=== PATIENT | female | born 1970 | race Caucasian/White ===

== ENCOUNTER 2020-09-06 10:16 | Outpatient (REF) | payer OTHER, SELFPAY | END 2020-09-06 10:17 | disposition home or self-care (01) | LOC: HO.LAB 10:16 | PROVIDERS: Visit Provider Internal Medicine | DX: Z20.822 Contact with and (suspected) exposure to COVID-19 (principal) | CPT/HCPCS: 36415; C9803; U0003; U0005 ==

== ENCOUNTER 2023-07-19 11:02 | Outpatient (REF) | payer MEDICAID, SELFPAY ==
[2023-07-19 14:09] LABS: Erythrocyte Sedimentation Rate 13 MM/HR (0-20)
[2023-07-21 04:58] LABS: Lyme Abs Screen <0.90 index
== END 2023-07-19 11:03 | disposition home or self-care (01) ==
LOC: HO.HHCL 11:02
PROVIDERS: Visit Provider Psychiatry & Neurology Neurology
DX: G51.0 Bell's palsy (principal)
CPT/HCPCS: 36415; 85652; 86617; 86618

== ENCOUNTER 2023-08-09 14:00 | Outpatient (RCR) | payer MEDICAID, SELFPAY ==
--- NOTE | 2023-09-13 10:44 | MHC.PT.DC ---
[facility] [place] [facility] [place] [facility] [place] [facility] [address] Petra Crawford [address] [phone] F: [phone] F: [phone] F: [phone] F: [phone] Physical Therapy Discharge Report Diagnosis: Equality palsy ( Dx) Date of Surgery: Date of Evaluation: 07/26/23 Date of Discharge: 09/13/23 Treatments to Date: 2 Cancellations to Date: 2 No Shows to Date: 1 Discharge Status: Patient Elected to Stop Visit Non-compliance Discharge Summary: Linda was given information on and educated about Equality Palsy and given exercises to practice daily for [facility]. She ceased attending PT on her own accord and is discharged from PT at this time. Electronically signed by: Pete Castro, PT, DPT Please sign and return to therapist. Thank you for your referral.
== END 2023-09-13 10:45 | disposition home or self-care (01) ==
LOC: HO.PT 14:00
PROVIDERS: PCP Student in an Organized Health Care Education/Training Program; Visit Provider Psychiatry & Neurology Neurology
DX: G51.0 Bell's palsy (principal)
CPT/HCPCS: 97110; 97140; 97163

== ENCOUNTER 2024-12-28 10:39 | Outpatient (REF) | payer MEDICAID, SELFPAY ==
--- NOTE | ~2024-12-28 | XR_ITS ---
EXAMINATION: XR FOOT 3 OR MORE VIEWS RIGHT HISTORY: distal plantar R foot pain for mos COMPARISON: There are no prior studies available for comparison. FINDINGS: Four views of the right foot are submitted. Osseous mineralization is normal. There is no fracture or dislocation. There is moderate osteoarthritis of the 1st MTP joint, with joint space narrowing and osteophyte formation. The soft tissues are unremarkable. No radiopaque foreign body is identified. XR/XR foot RT min 3V IMPRESSION: 1. 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 2. No radiopaque foreign body is identified. Electronically signed by: Adonis Banks MD 12/28/2024 11:13 AM EDT
== END 2024-12-28 10:40 | disposition home or self-care (01) ==
LOC: HO.HHCX 10:39
PROVIDERS: Visit Provider Family Medicine
DX: M79.671 Pain in right foot (principal)
CPT/HCPCS: 73630

== ENCOUNTER 2025-05-01 14:33 | Outpatient (REF) | payer MEDICAID, SELFPAY ==
--- NOTE | ~2025-05-01 | XR_ITS ---
EXAMINATION: XR LUMBOSACRAL SPINE CLINICAL INFORMATION: pain COMPARISON: None available. TECHNIQUE: Three views of the lumbosacral spine. FINDINGS: No evidence of acute fracture or spondylolisthesis. Vertebral body heights are maintained. Multilevel mild disc degeneration. Mild facet degeneration in the lower lumbar spine. No suspicious bony lesion. SI joints are symmetric. No abnormal soft tissue calcification. XR/XR lumbar spine 2-3V IMPRESSION: Mild lumbar spondylosis. Electronically signed by: Guille Srivastava MD 05/02/2025 03:19 PM VINEET BOWLES
--- OUTSIDE RECORDS SUMMARY | 2025-05-01 13:15 | XMS_ITS | Encounter Summary ---
Author Organization [employer] Address [address] [place] [address] 7 [place] [address] Care Team Providers Care Department Editor Name Role Phone Ariadna Jewell MD Primary Care Provide r Reason for Referral * Consultation (Routine) - Closed Specialty Diagnoses / Procedures Referred By Contac t Referred To Contact Physical Therapy Diagnoses Chronic midline low back pain without sciatica Ariadna Jewell MD [address] [place] [id number] Phone: tel: fax: [facility] Physical Therapy [address] [place] [address] Phone: tel: fax: Referral ID Status Reason Start Date Expiration Date V isits Requested Visits Authorized [id number] Closed Specialty Services Required 05/01/2025 05/01/2026 20 20 Encounter Details Date Type Department Care Team (Latest Contact Info) Description 05/01/2025 1:15 PM EST Office Visit [facility] MEDICINE [address] [place] [address] [phone] Ariadna Jewell MD [address] [place] [address] [phone] Subclinical hypothyroidism (Primary Dx); Uncomplicated opioid dependence (CMS/HCC) (HCC); Chronic midline low back pain without sciatica; Severe episode of recurrent major depressive disorder, without psychotic features (CMS/HCC) (HCC); Dietary counseling; Exercise counseling; Class 1 obesity due to excess calories with serious comorbidity and body mass index (BMI) of 32.0 to 32.9 in adult; Insomnia due to other mental disorder Social History Tobacco Use Types Packs/Day Years Used Date Smoking Tobacco: Every Day Cigarettes Passive Smoke Exposure: Never Smokeless Tobacco: Never Tobacco Cessation:Ready to Q uit: Not Asked; Counseling Given: Not Answered Alcohol Answer Date Recorded How often do you have a drink containing alcohol ? 0 05/01/2025 Average Number of Drinks Not on file 025 How often do you have six or more drinks on one occasion? 0 05/01/2025 Depression Answer Date Recorded Patient Health Questionnaire-9 Score 5 11/26/2022 Housing Stability Answer Date Recorded What is your housing situation today? I do not have housing (Staying with others, in a hotel, in a usp, living outside on the street, on a beach, in a car, or in a park 02/06/[address] you li ve. Do you have problems with any of the following? None of the above 02/06/2025 Food Insecurity Answer Date Recorded Within the past 12 months, y ou worried that your food would run out before you got money to buy more: Never True 02/06/2025 Within the past 12 months,th e food you bought just didn't last and you didn't have enough money to get more: Never True Transportation Answer Date Recorded In the past 12 months, has l ack of transportation kept you from medical appts, meetings, work or from getting things needed for daily living? Yes, it has kept me from non-medical meetings, work, or getting things that I need 02/06/2025 Utilities Answer Date Recorded In the past 12 months, has t he electric, gas, oil or water company threatened to shut off services in your home? No 02/06/2025 Depression Answer Date Recorded Patient Health Questionnaire-2 Score 0 11/26/2022 Internet Access Answer Date Recorded Internet Access Q1 Yes 02/06/2025 Internet Access Q2 Not on file 02/06/2025 Comments Unknown Sex and Gender Information Value Date Recorded Sex Assigned at Female 04/13/2022 10:31 AM EDT Legal Sex Female 10:31 AM EDT Gender Identity Female 04/13/2022 10:31 AM EDT Sexual Orientation Straight 04/13/2022 10 :31 AM EDT documented as of this encounter Last Filed Vital Signs Vital Sign Reading Time Taken Comments Blood Pressure 140/70 05/01/2025 1:30 PM EST Pulse 87 05/01/2025 1:30 PM EST Temperature 36.2 C (97.1 F) 05/01/2025 1:30 PM EST Respiratory Rate 14 05/01/2025 1:30 PM EST Oxygen Saturation 96% 05/01/2025 1:30 PM EST Inhaled Oxygen Concentration - - Weight 75.7 kg (166 lb 12.8 oz) 05/01/2025 1:30 PM EST Height 152.4 cm (5') 05/01/2025 1:30 PM EST Body Mass Index 32.58 05/01/2025 1:30 PM EST documented in this encounter Functional Status * Little interest or pleasure in doing things Answer Date of Assessment Author Nearly every day 05/01/2025 2:16 PM EST Roxanne Caldera MA * Trouble falling or staying asleep, or sleeping too much Answer Date of Assessment Author Nearly every day 05/01/2025 2:16 PM EST Roxanne Caldera MA * Feeling tired or having little energy Answer Date of Assessment Author Nearly every day 05/01/2025 2:16 PM Roxanne Villegas MA * Poor appetite or overeating Answer Date of Assessment Author Nearly every day 05/01/2025 2:16 PM EST Roxanne Caldera MA * Feeling bad about yourself - or that you are a failure or have let yourself or your family down Answer Date of Assessment Author Nearly every day 05/01/2025 2:16 PM EST Roxanne Caldera MA * Trouble concentrating on things, such as reading the newspaper or watching television Answer Date of Assessment Author More than half the days 05/01/2025 2:16 PM EST Kandi Macdonald MA * Moving or speaking so slowly that other people could have noticed? Or the opposite - being so fidgety or restless that you have been moving around a lot more than usual. Answer Date of Assessment Author Several days 05/01/2025 2:16 PM Smith Villegas ra, [place] * Thoughts that you would be better off or hurting yourself in some way Answer Date of Assessment Author Several days 05/01/2025 2:16 PM Smith Villegas ra, [place] * Over the last 2 weeks, how often have you been bothered by any of the following problems? Question Answer Date of Assessment Author Feeling nervous, anxious, or on edge 3 04/14 2:17 PM Kandi Villegas MA Not being able to stop or co ntrol worrying 1 05/01/2025 2:17 PM Kandi Villegas MA Worrying too much about diff erent things 1 05/01/2025 2:17 PM Kandi Villegas MA Trouble relaxing 3 05/01/2025 2:17 PM Kandi Pinto MA Being so restless that it is hard to sit still 1 05/01/2025 2:17 PM Kandi Villegas MA Becoming easily annoyed or irritable 3 04/14 2:17 PM Kandi Villegas MA Feeling afraid as if somethi ng awful might happen 3 05/01/2025 2:17 PM Kandi Villegas MA BRAD-7 Total Score 15 05/01/2025 2:17 PM Kandi Villegas MA documented as of this encounter Progress Notes * Ariadna Foley MD - 05/01/2025 1:15 PM EST SUBJECTIVE: Jorge Garza is a 54 y.o. year old female who presents for transfer appointment . 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 - EtOH denies (quit in the summer) - smoking cigarettes 4 daily - recreational drug use recently relapse on fentanyl patient has accessibility to narcan Diet:regular Exercise:walks 3 times a week 30min daily Surgeries/Hospitalizations:none Declines colon cancer screening PMHx:on chart FMHx:on chart Immunizations: Reviewed Jorge Garza, 54 years Chronic Low Back Pain - Intermittent lower back pain since 2009 - Pain located across lower back above buttocks, sometimes radiates to hip - Aggravated by walking and standing for prolonged periods; relieved by sitting - Described as agonizing at times, interferes with ability to work - No prior formal evaluation for back pain - No prior treatments reported - Recent increase in impact on daily functioning Sleep Disturbance - Ongoing difficulty sleeping, wakes up every hour - Reports being very tired - Tried Tylenol PM, hydroxyzine, and clonidine for sleep with minimal benefit - Recent reduction in doxepin dose from 90 mg to 10 mg - 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 program 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 Substance Use and Mental Health - History of depression, currently on duloxetine (recently reduced from 90 mg to 30 mg) - Reports relapse with fentanyl use on day of visit; history of heroin (snorted), marijuana, and crack cocaine use - On 135 mg methadone maintenance - No history of overdose on heroin - Reports significant psychosocial stressors: recent homelessness, a few years ago, loss of pet to cancer - Denies current suicidal ideation or plan Weight Gain - Reports weight gain from 113 lbs in spring to 166 lbs at time of visit - History of possible thyroid evaluation in past due to weight gain Lower Extremity Symptoms - Reports visible veins and swelling around ankle, with a circular emy - No prior evaluation or treatment for these symptoms Dyspareunia - Last intercourse in late winter or early spring was painful and uncomfortable - No further intercourse since that episode - Last Pap smear in 2020 with negative HPV co-testing Misc - Reports dry mouth - Reports generalized pain including ankle Social History Social History Narrative Not on file Problem List[1] Moderate depressive disorder Opioid dependence (HCC) Subclinical hypothyroidism Health care maintenance Elevated liver enzymes Hyperlipidemia Bella's palsy Chronic midline low back pain without sciatica Severe episode of recurrent major depressive disorder, without psychotic features (CMS/HCC) (HCC) Family History[2] Review of Systems Constitutional: Negative. HENT: Negative. Respiratory: Negative. Cardiovascular: Negative. Musculoskeletal: Positive for arthralgias, back pain and myalgias. Psychiatric/Behavioral: Positive for sleep disturbance. The patient is nervous/anxious. OBJECTIVE: Vitals: 05/01/25 1330 BP: (!) 140/70 BP Location: Left arm Patient Position: Sitting BP Cuff Size: Adult Pulse: 87 Resp: 14 Temp: 97.1 ??F (36.2 ??C) TempSrc: Oral SpO2: 96% Weight: 166 lb 12.8 oz (75.7 kg) Height: 5' (1.524 m) Physical Exam Constitutional: Appearance: Normal appearance. Cardiovascular: Rate and Rhythm: Normal rate and regular rhythm. Pulmonary: Effort: Pulmonary effort is normal. Breath sounds: Normal breath sounds. Abdominal: General: Abdomen is flat. Palpations: Abdomen is soft. Musculoskeletal: Lumbar back: Tenderness present. Right lower leg: No edema. Left lower leg: No edema. Neurological: Mental Status: She is alert. Follow Up: No follow-ups on file. Medications Ordered Prior to Encounter[3] Problem List Items Addressed This Visit Opioid dependence (HCC) Relevant Orders HIV-1/2 Antigen and Antibodies, Fourth Generation, with Reflexes Hepatitis C Antibody with Reflex to HCV, RNA, Quantitative, Real-Time PCR Chronic midline low back pain without sciatica Relevant Orders XR Lumbar Spine 2-3 Views Referral to Physical Therapy Subclinical hypothyroidism - Primary Relevant Orders CBC auto differential Comprehensive Metabolic Panel Hemoglobin A1c Lipid Panel, Standard Vitamin D, 25-Hydroxy, Total, Immunoassay TSH with Reflex to Free T4 Severe episode of recurrent major depressive disorder, without psychotic features (CMS/HCC) ([facility]) Relevant Orders CBC auto differential Comprehensive Metabolic Panel Hemoglobin A1c Lipid Panel, Standard Vitamin D, 25-Hydroxy, Total, Immunoassay TSH with Reflex to Free T4 Insomnia due to other mental disorder Other Visit Diagnoses Dietary counseling Exercise counseling Class 1 obesity due to excess calories with serious comorbidity and body mass index (BMI) of 32.0 to 32.9 in adult Uncomplicated opioid dependence (CMS/HCC) ([facility]): - Opioid dependence with recent relapse reported. Currently on methadone maintenance therapy. - Continue methadone maintenance. Discussed presence of Narcan in residence. No changes to current medication regimen. Follow-up with entertainment reporter and psychiatrist as scheduled. Chronic midline low back pain without sciatica: - Chronic low back pain, possibly related to osteoarthritis. No prior formal evaluation. - Ordered lumbar spine X-ray. Referred to physical therapy. Follow-up appointment scheduled in one month to review imaging and progress. Subclinical hypothyroidism: - Subclinical hypothyroidism considered due to weight gain and prior thyroid concerns. - Ordered thyroid function tests as part of blood work. Will review results at follow-up. Severe episode of recurrent major depressive disorder, without psychotic features (CMS/HCC) ([facility]): - Severe recurrent major depressive disorder without psychotic features. Currently managed by psychiatrist with duloxetine and other medications. Ongoing psychosocial stressors. - Continue current psychiatric management. Recommended follow-up with psychiatrist on May. Encouraged communication with counselor and entertainment reporter. Edema and venous changes in lower extremities: - Edema and visible venous changes noted in ankles. No acute intervention indicated. - Will monitor. No specific intervention ordered at this time. Insomnia: - Persistent insomnia despite current medications. Difficulty sleeping reported. - Recommended discussion of sleep issues with psychiatrist at upcoming appointment. No new sleep medication prescribed. Weight gain: - Significant weight gain noted. Possible multifactorial etiology including thyroid dysfunction anddietary habits. - Ordered blood work including thyroid panel, kidney, liver, cholesterol, HIV, and hepatitis. Discussed dietary modifications. No gripper installer referral at this time per patient preference. Will review lab results at follow-up. [1] Patient Active Problem List Diagnosis Moderate depressive disorder Opioid dependence (HCC) Subclinical hypothyroidism Health care maintenance Elevated liver enzymes Hyperlipidemia Bella's palsy Chronic midline low back pain without sciatica Severe episode of recurrent major depressive disorder, without psychotic features (CMS/HCC) (HCC) Insomnia due to other mental disorder [2] No family history on file. [3] Current Outpatient Medications on File Prior to Visit Medication Sig Dispense Refill cloNIDine (Catapres) 0.1 MG tablet Take 1 tablet by mouth every 6 (six) hours during the day. cyclobenzaprine (Flexeril) 5 MG tablet Take 1 tablet by mouth if needed in the morning, at noon, and at bedtime for muscle spasms. doxepin (SINEquan) 75 MG capsule Take 1 capsule by mouth at bedtime. DULoxetine (Cymbalta) [address] capsule take 1 capsule by mouth every day in the evening DULoxetine (Cymbalta) [address] capsule Take 60 mg by mouth in the morning. fenofibrate (Triglide) 160 MG tablet TAKE 1 TABLET BY MOUTH EVERY DAY 90 tablet 0 gabapentin (Neurontin) 600 MG tablet Take 1 tablet by mouth every 6 (six) hours during the day. hydrOXYzine pamoate (Vistaril) 25 MG capsule Take 1 capsule by mouth every 6 (six) hours during theday. ibuprofen 600 MG tablet Take 1 tablet (600 mg) by mouth every 6 (six) hours if needed for mild pain. 30 tablet 1 methadone (Dolophine) 10 MG/ML solution 95 mg PO in [facility] methadone [facility] naloxone (Narcan) 4 mg/0.1 mL nasal spray nicotine (Nicoderm CQ) 21 MG/24HR patch Place 1 patch on the skin 1 (one) time each day at the sametime. 42 patch 1 rosuvastatin (Crestor) 20 MG tablet Take 1 tablet (20 mg) by mouth in the morning. 30 tablet 11 Salicylic Acid (Wart Remover Medicated) 40 % pads Apply 1 each topically every other day. 12 each 1 valACYclovir (Valtrex) 1 g tablet Take 1 tab three times daily x 1 week 21 tablet 0 No current facility-administered medications on file prior to visit. documented in this encounter Plan of Treatment Upcoming Encounters Date Type Department Care Team (Late st Contact Info) Description 06/13/2025 2:00 PM EST Telemedicine [facility] MEDICINE [address], [place] [phone] Ariadna Jewell MD [address] [place], [place] [phone] Scheduled Orders Name Type Priority Associated Diagnoses Orde r Schedule XR Lumbar Spine 2-3 Views Imaging Routine Chronic midline low back pain without sciatica Expected: 05/01/2025, Expires: 05/01/2026 CBC auto differential Lab Routine Subclinical hypothyroidism Severe episode of recurrent major depressive disorder, without psychotic features (CMS/HCC) (HCC) Expected: 05/01/2025 (Approximate), Expires: 05/01/2026 Comprehensive Metabolic Panel Lab Routine Subclinical hypothyroidism Severe episode of recurrent major depressive disorder, without psychotic features (CMS/HCC) (HCC) Expected: 05/01/2025 (Approximate), Expires: 05/01/2026 Hemoglobin A1c Lab Routine Subclinical hypothyroidism Severe episode of recurrent major depressive disorder, without psychotic features (CMS/HCC) (HCC) Expected: 05/01/2025 (Approximate), Expires: 05/01/2026 HIV-1/2 Antigen and Antibodies, Fourth Generation, with Reflexes Lab Routine Uncomplicated opioid dependence (CMS/HCC) (HCC) Expected: 05/01/2025 (Approximate), Expires: 05/01/2026 Hepatitis C Antibody with Reflex to HCV, RNA, Quantitative, Real-Time PCR Lab Routine Uncomplicated opioid dependence (CMS/HCC) (HCC) Expected: 05/01/2025, Expires: 05/01/2026 Lipid Panel, Standard Lab Routine Subclinical hypothyroidism Severe episode of recurrent major depressive disorder, without psychotic features (CMS/HCC) (HCC) Expected: 05/01/2025 (Approximate), Expires: 05/01/2026 Vitamin D, 25-Hydroxy, Total, Immunoassay Lab Routine Subclinical hypothyroidism Severe episode of recurrent major depressive disorder, without psychotic features (CMS/HCC) (HCC) Expected: 05/01/2025 (Approximate), Expires: 05/01/2026 TSH with Reflex to Free T4 Lab Routine Subclinical hypothyroidism Severe episode of recurrent major depressive disorder, without psychotic features (CMS/HCC) (HCC) Expected: 05/01/2025 (Approximate), Expires: 05/01/2026 Scheduled Referrals Name Type Priority Associated Diagnoses Orde r Schedule Referral to Physical Therapy Outpatient Referral Routine Chronic midline low back pain without sciatica Expected: 05/01/2025 (Approximate), Expires: 05/01/2026 documented as of this encounter Visit Diagnoses Diagnosis Subclinical hypothyroidism- Primary Other specified acquired hypothyroidism Uncomplicated opioid dependence (CMS/HCC) (HCC) Chronic midline low back pain without sciatica Severe episode of recurrent major depressive disorder, without psychotic features (CMS/HCC) (HCC) Dietary counseling Dietary surveillance and counseling Exercise counseling Class 1 obesity due to excess calories with serious comorbidity and body mass index (BMI) of 32.0 to 32.9 in adult Insomnia due to other mental disorder documented in this encounter Additional Health Concerns Assessment Noted Time PHQ-9 Depression Total Score: 5 11/27/19 23 11:49 AM EDT documented as of this encounter Care Teams Department Editor Relationship Specialty Start Date End Date Ariadna Jewell MD [address] [place] [phone] PCP - General Internal Medicine 12/11/24 Jailene Busby Dress MarkerNetwork Operations Technician 11/15/24 documented as of this encounter
--- OUTSIDE RECORDS SUMMARY | 2025-05-02 12:21 | XMS_ITS | Clinical Summary ---
Author Organization [employer] Address [address] [facility] 7t [place] [address] Care Team Providers Care House Carpenter Name Role Phone Ariadna Jewell MD Primary Care Provide r Allergies No known active allergies Medications methadone (Dolophine) 10 MG/ML solution 95 mg PO in [facility] methadone clinic 1 Active nicotine (Nicoderm CQ) 21 MG/24HR patchIndications:E ncounter for smoking cessation counseling Place 1 patch on the skin 1 (one) time each day at the same time. 42 patch 1 3 Active rosuvastatin (Crestor) 20 MG tabletIndications: Hyperlipidemia, unspecified hyperlipidemia type Take 1 tablet (20 mg) by mouth in the morning. 30 tablet 11 3 Active valACYclovir (Valtrex) 1 g tabletIndications: Bella's palsy Take 1 tab three times daily x 1 week 21 tablet 3 Active DULoxetine (Cymbalta) [address] capsule Take 60 mg by mouth in the morning. 3 Active fenofibrate (Triglide) 160 MG tabletIndications: Hyperlipidemia, unspecified hyperlipidemia type,Alcohol use TAKE 1 TABLET BY MOUTH EVERY DAY 90 tablet 4 Active Salicylic Acid (Wart Remover Medicated) 40 % pads Apply 1 each topically every other day. 12 each 1 5 Active ibuprofen 600 MG tablet Take 1 tablet (600 mg) by mouth every 6 (six) hours if needed for mild pain. 30 tablet 1 5 12/29/19 26 Active gabapentin (Neurontin) 600 MG tablet Take 1 tablet by mouth every 6 (six) hours during the day. 5 Active hydrOXYzine pamoate (Vistaril) 25 MG capsule Take 1 capsule by mouth every 6 (six) hours during the day. 5 Active DULoxetine (Cymbalta) [address] capsule take 1 capsule by mouth every day in the evening Active doxepin (SINEquan) 75 MG capsule Take 1 capsule by mouth at bedtime. 5 Active naloxone (Narcan) 4 mg/0.1 mL nasal spray Active cyclobenzaprine (Flexeril) 5 MG tablet Take 1 tablet by mouth if needed in the morning, at noon, and at bedtime for muscle spasms. Active cloNIDine (Catapres) 0.1 MG tablet Take 1 tablet by mouth every 6 (six) hours during the day. 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 Needs Hep B booster series, not immune in 2020, never revaccinated. Received dose #1 today 11/26/22 HIV: Nonreactive 11/08/20 Hep C: Nonreactive 11/08/20 Hepatitis B: NOT immune 11/08/20 Pap Smear: 10/11/20 NILM HPV neg. Repeat 5 years, 09/2025 Mammogram: Never done. Ordered 03/27/22. No record of being performed Colonoscopy: Never done. Discussed colon cancer screening options. Pt wishes to discuss further at next visit. Lung cancer: Encouraged smoking cessation. Per USPSTF annual low-dose lung CT scan age 50-80 who meet criteria: current smoker or quit in last 15 years; at least 20 pack history. Pt meets criteria. Needs screening. Will discuss at next visit. Elevated liver enzymes 12/04/2022 Overview (12/04/2022): ALT/AST elevated in the past Daily ETOH consumption Assessment & Plan (12/04/2022 12:24 PM EDT): Will check CMP liver enzymes again today Notify results F/u 3 months with new PCP Hyperlipidemia 12/04/2022 Overview (12/04/2022): Treating with Fenofibrate 160mg daily Rosuvastatin 10 mg since Jul 2022 Following low fat diet Assessment & Plan (12/04/2022 12:26 PM EDT): Will check lipid panel again today Improved from Jun 2022 but still elevated Will increase Rosuvastatin to 20 mg daily at bedtime Notify clinic of leg pains Avoid grapefruit juice F/u 3 months with new PCP Moderate depressive disorder 03/27/2022 Overview (12/04/2022): 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, 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 Grief r/t passing December 2021 Treating with Wellbutrin 300 mg Daily Assessment & Plan (12/04/2022 12:35 PM EDT): Continue wellbutrin Sx affecting daily living and function SSI pending Followup PRN Subclinical hypothyroidism 05/05/2021 Overview (07/03/2022): Thyroid panel WNL 03/27/22 Opioid dependence 02/10/2021 Resolved Problems Problem Noted Date Diagnosed Date Resolved Date Hypertriglyceridemia 05/05/2021 023 Encounters Date Type Department Care Team Description 05/01/2025 1:15 PM EST Office Visit [facility] [address] [place] [address] [phone] Ariadna Jewell MD Subclinical hypothyroidism (Primary Dx); Uncomplicated opioid dependence (CMS/HCC) (HCC); Chronic midline low back pain without sciatica; Severe episode of recurrent major depressive disorder, without psychotic features (CMS/HCC) (HCC); Dietary counseling; Exercise counseling; Class 1 obesity due to excess calories with serious comorbidity and body mass index (BMI) of 32.0 to 32.9 in adult; Insomnia due to other mental disorder 05/01/2025 Travel 04/30/[address] [phone] Ariadna Jewell MD Chart Prep 04/24/2025 Patient Outreach [address] [phone] Ariadna Jewell MD Pre-visit Planning (SDOH screening completed on 02/06/2025) 02/14/[address] [address] Ariadna Jewell MD chart prep 02/06/2025 Patient Outreach [address] [phone] Ariadna Jewell MD Care Coordination (CHW outreach for SDOH housing search-referral completed ) 02/06/2025 Patient Outreach [address] [address] Ariadna Jewell MD Pre-visit Planning (SDOH screening negative and tobacco screening negative) from Last 3 Months Immunizations Immunization Administration Dates Next Due Hep B, adult 11/26/2022 Tdap 10/21/2017 Social History Tobacco Use Types Packs/Day Years [...] with others, in a hotel, in a half-way, living outside on the street, on a [...] Orientation Straight 04/13/2022 10 :31 AM EDT Last Filed Vital Signs Vital Sign Reading [...] Mass Index 32.58 05/01/2025 1:30 PM EST Plan of Treatment Upcoming Encounters Date Type Department Care Team (Late st Contact Info) Description 06/13/2025 2:00 PM EST Telemedicine [facility] [address] [place] [phone] Ariadna Jewell MD [address] [place] [address] Health Maintenance Due Date Last Done Comments CT Colonography 1969 Colonoscopy 1969 Colorectal Cancer Screening 1969 FIT DNA/Cologuard 1969 FIT 1969 FOBT 1969 Sigmoidoscopy 1969 Disability Screening 1969 Pneumococcal Vaccine: 50+ Years (1 of 2 - PCV) 1988 Mammogram 2009 Zoster Vaccines (1 of 2) 2019 Hepatitis B Vaccines (2 of 3 - 19+ 3-dose series) 12/24/2022 11/26/2022 Depression Screening 11/27/2023 11/26/2022, 11/27/19 23 COVID-19 Vaccine ( - season) 2025 07/16/2021, 11/18/2020, 10/21/2020 Influenza Vaccine (#1) 2025 Cervical Cancer Screening 10/11/2025 HPV/Cotest 10/11/2025 10/11/2020 Pap Smear 10/11/2025 10/11/2020 SDOH Screening 02/06/2026 02/06/2025 Alcohol/Substance Use Screening 05/01/2026 05/01/2025 Tobacco Screening 05/01/2026 05/01/2025 DTaP/Tdap/Td Vaccines (2 - Td or Tdap) 10/22/2027 10/21/2017 Lipid Panel 11/27/2027 11/26/2022, 06/15, 03/27/2022, Additional history exists RSV Patients and Patients Aged 60 years or older (1 - 1-dose 75+ series) 2044 HIV Screening Completed 11/08/2020 Hepatitis C Screening Completed 11/08/2020 HIB Vaccines Aged Out No longer eligi ble based on patient's age to complete this topic HPV Vaccines Aged Out No longer eligi ble based on patient's age to complete this topic Hepatitis A Vaccines Aged Out No long er eligible based on patient's age to complete this topic IPV Vaccines Aged Out No longer eligi ble based on patient's age to complete this topic Meningococcal B Vaccine Aged Out No l onger eligible based on patient's age to complete this topic Meningococcal Vaccine Aged Out No agusto laura eligible based on patient's age to complete this topic RSV under 20 months Aged Out No longe r eligible based on patient's age to complete this topic Rotavirus Vaccines Aged Out No longer eligible based on patient's age to complete this topic Procedures Procedure Name Priority Date/Time Associated Diagnosis Comments LIPID PANEL, STANDARD Routine 11/26/2022 12:47 PM EDT Hyperlipidemia, unspecified hyperlipidemia type ZZZ HISTORICAL HEPATITIS C AB W/REFL TO HCV RNA, QN, PCR Routine 11/08/2020 10:22 AM EDT HIV 1/2 ANTIGEN/ANTIBODY, FOURTH GENERATION W/RFL Routine 11/08/2020 10:22 AM EDT HPV MRNA E6/E7 Routine 10/11/2020 4:36 PM EDT THINPREP IMAGING SYSTEM PAP Routine 10/11/2020 4:36 PM EDT from Last 3 Months or Most Recently Relevant to Health Maintenance Results * (ABNORMAL) Lipid Panel, Standard (11/26/2022 12:47 PM EDT) Cholesterol, Total 240(H) <200 mg/dL [facility] HDL Cholesterol 80 > OR = 50 mg/dL [facility] Triglycerides 183(H) <150 mg/dL [facility] LDL Cholesterol 128(H) mg/dL (calc) [facility] Comment: Reference range: <100 Desirable range <100 mg/dL for primary prevention; <70 mg/dL for patients with CHD or diabetic patients with > or = 2 CHD risk factors. LDL-C is now calculated using the Luz Marina calculation, which is a validated novel method providing better accuracy than the Friedewald equation in the estimation of LDL-C. Juan RAHMAN et al. AYAKA. 2013;310(19): 4087-4513 (http://education.MySocialNightlife/faq/PKO514) Chol/HDLC Ratio 3.0 <5.0 (calc) [facility] Non-HDL Cholesterol 160(H) <130 mg/dL (calc) [facility] Comment: For patients with diabetes plus 1 major ASCVD risk factor, treating to a non-HDL-C goal of <100 mg/dL (LDL-C of <70 mg/dL) is considered a therapeutic option. Blood Venous blood specimen / Unknown 11/26/2022 12:47 PM EDT 11/26/2022 12:47 PM EDT Narrative [facility] - 11/27/2022 7:00 AM EDT FASTING:NO FASTING: NO Betsey Stevenson [facility] LAB BLOOD ORDERABLES Final Result Performing Organization Address [facility]/ZIP Co de Phone Number [address], [place] [address] [facility] [address] [place] [address] * HEPATITIS C AB W/REFL TO HCV RNA, QN, PCR (11/08/2020 10:22 AM EDT) HEPATITIS C ANTIBODY NON-REACT GUALBERTO NON-REACT GUALBERTO [facility] INDEX 0.01 <1.00 [facility] Comment: HCV antibody was non-reactive. There is no laboratory evidence of HCV infection. In most cases, no further action is required. However, if recent HCV exposure is suspected, a test for HCV RNA (test code 52987) is suggested. For additional information please refer to http://education.Incanthera/faq/KTR89t5 (This link is being provided for informational/ educational purposes only.) 11/08/2020 10:2 2 AM EDT us Linda Myers MD HISTORICAL/NON ORDERABLE LABS Final Result Performing Organization Address City/[facility]/ZIP Co de Phone Number [facility] [address] [place] [address], * HIV 1/2 ANTIGEN/ANTIBODY,FOURTH GENERATION W/RFL (11/08/2020 10:22 AM EDT) HIV-1/2 ANTIGEN AND ANTIBODIES, 4TH GENERATION W/ REFLEX NON-REACT GUALBERTO NON-REACT GUALBERTO [facility] Comment: HIV-1 antigen and HIV-1/HIV-2 antibodies were not detected. There is no laboratory evidence of HIV infection. PLEASE NOTE: This information has been disclosed to you from records whose confidentiality may be protected by state law. If your state requires such protection, then the state law prohibits you from making any further disclosure of the information without the specific written consent of the person to whom it pertains, or as otherwise permitted by law. A general authorization for the release of medical or other information is NOT sufficient for this purpose. For additional information please refer to http://education.Incanthera/faq/CHD659 (This link is being provided for informational/ educational purposes only.) The performance of this assay has not been clinically validated in patients less than 2 years old. 11/08/2020 10:2 2 AM EDT us Linda Myers MD LAB BLOOD ORDERABLES Final Re sult [facility] [address] [place] [address], * THINPREP TIS PAP (10/11/2020 4:36 PM EDT) Clinical Information: POSTMENOPAUSAL BLEEDING [facility] COMMENT SEE COMMENT [facility] Comment: EXPLANATORY NOTE: The Pap is a screening test for cervical cancer. It is not a diagnostic test and is subject to false negative and false positive results. It is most reliable when a satisfactory sample, regularly obtained, is submitted with relevant clinical findings and history, and when the Pap result is evaluated along with historic and current clinical information. COMMENT: This Pap test has been evaluated with computer assisted technology. [facility] Supervisor [employer] : SEE COMMENT [facility] Comment: RMM, CT(ASCP) CT screening location: [place] [id number] Interpretation/R esult: Negative for intraepithelial lesion or malignancy. [facility] LMP: NONE GIVEN [facility] PATHOLOGIST: SEE COMMENT [facility] Comment: Sai Cronin M.D., Direct , Board Certified in Anatomic Pathology and Cytopathology (electronic signature) Consulting Pathologist [facility] [address] [place], [place] [id number] Prev. BX: NONE [facility]IVEN [facility] Prev. PAP: NONE [facility]IVEN [facility] SOURCE: None given [facility] Statement Of Adequacy: SEE COMMENT [facility] Comment: Satisfactory for evaluation. Endocervical/transformation zone component present. 10/11/2020 4:36 PM EDT us Linda Myers MD LAB PATHOLOGY ORDERABLES Beata l Result Performing Organization Address [facility] de Phone Number [facility] [address] * HPV mRNA E6/E7 (10/11/2020 4:36 PM EDT) Pathologist [facility] [place] HPV nRNA E6/E7 Not Detected Not Detected [facility] Comment: Methodology: N[facility] Lab Technician-Mediated Amplification This assay detects E6/E7 viral messenger RNA (mRNA) from 14 high-risk HPV types (16,18,31,33,35,39,45,51,52,56,58,59,66,68). The analytical performance characteristics of this assay have been determined by [facility]. The modifications have not been cleared or approved by the FDA. This assay has been validated pursuant to the CLIA regulations and is used for clinical purposes. For additional information, please refer to http://education.Feidee.Axonify/faq/JDI712l3 (This link if provided for information/ educational purposes only.) 10/11/2020 4:36 PM EDT us Linda Myers MD LAB BLOOD ORDERABLES Final Re sult Performing Organization Address [facility] Co de Phone Number [facility] [address] from Last 3 Months or Most Recently Relevant to Health Maintenance Insurance [facility]SN [facility] STANDARD Care Teams House Carpenter Relationship Specialty Start Date End Date Ariadna Jewell MD [address] [place] [address] PCP - General Internal Medicine 12/11/24 Jailene Busby Transfer ControllerCertified [place] Administrator 11/15/24
--- OUTSIDE RECORDS SUMMARY | 2025-05-02 12:21 | XMS_ITS | Encounter Summary ---
Author Organization [employer] Address [address] [facility] [address] [place] [address] Care Team Providers Care Hone Operator Name Role Phone Ariadna Jewell MD Primary Care Provide r Reason for Visit * Reason Onset Date Comments Chart Prep 04/30/2025 Encounter Details Date Type Department Care Team ([facility] st Contact Info) Description 04/30/2025 Telephone [facility] [address] [place] [address] Ariadna Jewell MD [address] [place] [address] Chart Prep Social History Tobacco Use Types Packs/Day Years Used Date Smoking Tobacco: Every Day Cigarettes Passive Smoke Exposure: Never Smokeless Tobacco: Never Alcohol Answer Date Recorded How often do [...] with others, in a hotel, in a prison, living outside on the street, on a [...] the past 12 months, has t he [employer], gas, oil or water [employer] threatened to shut off services in your [...] AM EDT documented as of this encounter Miscellaneous Notes * Telephone Encounter - Beatriz Fenrández [place] - 04/30/2025 9:53 AM EST Chart Prep Labs: not applicable Images: not applicable Referrals: not applicable Vaccines due: Covid, Flu, PCV20, Hep B, and Zoster Screenings: colonoscopy and mammogram Overdue care gaps: SBIRT, PHQ-9, BRDA-7, and Disability screen documented in this encounter Plan of Treatment Upcoming Encounters Date Type Department Care Team (Late st Contact Info) Description 06/13/2025 2:00 PM EST Telemedicine [facility]INE [address], [place] [phone] Ariadna Jewell MD [address] [place] [address] documented as of this encounter Visit Diagnoses Not on filedocumented in this encounter Additional Health Concerns Assessment Noted Time PHQ-9 Depression Total Score: 5 11/27/19 23 11:49 AM EDT documented as of this encounter Care Teams Hone Operator Relationship Specialty Start Date End Date Ariadna Jewell MD [address] [place] [address] PCP - General Internal Medicine 12/11/24 Jailene Busby Rn X RayPillowcase Cleaner 11/15/24 documented as of this encounter
--- OUTSIDE RECORDS SUMMARY | 2025-05-02 12:21 | XMS_ITS | Encounter Summary ---
Author Organization [employer] Address [address] [facility] 7t [place] [address] Care Team Providers Care Weight Control Lecturer Name Role Phone Ariadna Jewell MD Primary Care Provide r Encounter Details Date Type Department Care Team (Latest Contact Info) Description 05/01/2025 Travel Social History Tobacco Use Types Packs/Day Years [...] with others, in a hotel, in a fci, living outside on the street, on a [...] AM EDT documented as of this encounter Functional Status * Little interest or pleasure in doing things Answer Date of Assessment Author Nearly every day 05/01/2025 2:16 PM Roxanne Villegas [place] * Trouble falling or staying asleep, or sleeping too much Answer Date of Assessment Author Nearly every day 05/01/2025 2:16 PM Roxanne Villegas [place] * Feeling tired or having little energy Answer Date of Assessment Author Nearly every day 05/01/2025 2:16 PM Roxanne Villegas [place] * Poor appetite or overeating Answer Date of Assessment Author Nearly every day 05/01/2025 2:16 PM Roxanne Villegas MA * Feeling bad about yourself - or that you are a failure or have let yourself or your family down Answer Date of Assessment Author Nearly every day 05/01/2025 2:16 PM Roxanne Villegas [place] * Trouble concentrating on things, such as reading the newspaper or watching television Answer Date of Assessment Author More than half the days 05/01/2025 2:16 PM Kandi Pinto MA * Moving or speaking so slowly [...] MA Trouble relaxing 3 05/01/2025 2:17 PM EST Kandi Macdonald MA Being so restless that it is hard to sit still 1 05/01/2025 2:17 PM Kandi Villegas MA Becoming easily annoyed or irritable 3 04/14 2:17 PM Kandi Villegas MA Feeling afraid as if somethi ng awful might happen 3 05/01/2025 2:17 PM Kandi Villegas MA BRAD-7 Total Score 15 05/01/2025 2:17 PM Kandi Villegas MA documented as of this encounter Plan of Treatment Upcoming Encounters Date Type Department Care Team (Late st Contact Info) Description 06/13/2025 2:00 PM EST Telemedicine [facility] MEDICINE [address] [place] [address] Ariadna Jewell MD [address] [place] [address] documented as of this encounter Visit Diagnoses Not on filedocumented in this encounter Additional Health Concerns Assessment Noted Time PHQ-9 Depression Total Score: 5 11/27/19 23 11:49 AM EDT documented as of this encounter Care Teams Weight Control Lecturer Relationship Specialty Start Date End Date Ariadna Jewell MD [address] [place] [phone] PCP - General Internal Medicine 12/11/24 Jailene Busby Battery Tester [employer] Painter Helper 11/15/24 documented as of this encounter
== END 2025-05-01 14:34 | disposition home or self-care (01) ==
LOC: HO.HHCX 14:33
PROVIDERS: PCP Internal Medicine; Visit Provider Internal Medicine
DX: G89.29 Other chronic pain (principal); M54.50 Low back pain, unspecified
CPT/HCPCS: 72100

== ENCOUNTER → 2025-05-01 14:38 | Outpatient (BNV) | payer MEDICAID, SELFPAY | PROVIDERS: PCP Internal Medicine; Visit Provider Radiology Diagnostic Ultrasound | DX: M47.816 Spondylosis without myelopathy or radiculopathy, lumbar region (principal) | CPT/HCPCS: 72100 ==

== ENCOUNTER 2025-05-14 09:14 | Outpatient (REF) | payer MEDICAID, SELFPAY ==
--- OUTSIDE RECORDS SUMMARY | 2025-05-14 10:56 | XMS_ITS | Clinical Summary ---
Author Organization [employer] Address [address] [facility] [address] [place] [address] Care Team Providers Care Project Coordinator Name Role Phone Ariadna Jewell MD Primary Care Provide r Allergies No known active allergies Medications methadone (Dolophine) 10 MG/ML solution 95 mg PO in [facility] methadone clinic 1 Active nicotine (Nicoderm CQ) [...] 03/27/2022 Overview (12/04/2022): Depression, has therapy and academic coach Grief r/t passing December 2021 Treating with [...] Description 05/01/2025 1:15 PM EST Office Visit [facility] [address] [place] [address] [phone] Ariadna Jewell MD Subclinical hypothyroidism (Primary Dx); [...] other mental disorder 05/01/2025 Travel 04/30/[address] [address] Ariadna Jewell MD Chart Prep 04/24/2025 Patient Outreach [address] [address] Ariadna Jewell MD Pre-visit Planning (SDOH screening completed on 02/06/2025) 02/14/2025 Telephone [facility] [address] [place] [address] Ariadna Jewell MD chart prep from Last 3 Months Immunizations Immunization Administration [...] with others, in a hotel, in a halfway, living outside on the street, on a [...] Info) Description 06/13/2025 2:00 PM EST Telemedicine [facility] [address] [place] [address] Ariadna Jewell MD [address] [place] [address] Health Maintenance Due Date Last Done Comments [...] Screening 11/27/2023 11/26/2022, 11/27/19 23 COVID-19 Vaccine (4 - season) 2025 07/16/2021, 11/18/2020, 10/21/2020 Influenza [...] Procedure Name Priority Date/Time Associated Diagnosis Comments XR LUMBAR SPINE 2-3 VIEWS Routine 05/01/2025 2:38 PM EST Chronic midline low back pain without sciatica LIPID PANEL, STANDARD Routine 11/26/2022 12:47 PM [...] Recently Relevant to Health Maintenance Results * XR Lumbar Spine 2-3 Views (05/01/2025 2:38 PM EST) Anatomical Region Laterality Modality Spine, L-spine Radiographic Tara ging 05/01/2025 2:38 PM EST Narrative 05/02/2025 3:22 [place] [address] XRay Report Signed Patient: Jorge Garza MR#: [id number] : 1970 Acct:[id number] Age/Sex: 54 / F ADM Date: 05/01/25 Loc: HO.HHCX Attending Dr: Ariadna Foley MD Ordering Physician: Ariadna Jewell MD Date of Service: 05/01/25 Procedure(s): XR lumbar spine 2-3V Accession Number(s): [id number] cc: Ariadna Jewell MD Reason for Exam: pain EXAMINATION: XR LUMBOSACRAL SPINE CLINICAL INFORMATION: pain COMPARISON: None available. TECHNIQUE: Three views of the lumbosacral spine. FINDINGS: No evidence of acute fracture or spondylolisthesis. Vertebral body heights are maintained. Multilevel mild disc degeneration. Mild facet degeneration in the lower lumbar spine. No suspicious bony lesion. SI joints are symmetric. No abnormal soft tissue calcification. XR/XR lumbar spine 2-3V IMPRESSION: Mild lumbar spondylosis. Electronically signed by: Guille Srivastava MD 05/02/2025 03:19 PM EST RP Dictated By: Guille Srivastava MD Signed By: <Electronically signed by Guille Srivastava MD in OV> 05/02/25 1519 DD/ 1438 TD/TT: 05/01/25 1447 Resource Room Special Education Teacher: DAGO Procedure Note Donotuseinterpreter, Image - 05/02/2025 [place] [address] XRay Report Signed Patient: Jorge Garza DMR#: [id number] : 1970Acct:[id number] Age/Sex: 54 / FADM Date: 05/01/25 Loc: HOHHCX Attending Dr: Ariadna Foley MD Ordering Physician: Ariadna Jewell MD Date of Service: 05/01/25 Procedure(s): XR lumbar spine 2-3V Accession Number(s): [id number] cc: Ariadna Jewell MD Reason for Exam: pain EXAMINATION: XR LUMBOSACRAL SPINE CLINICAL INFORMATION: pain COMPARISON: None available. TECHNIQUE: Three views of the lumbosacral spine. FINDINGS: No evidence of acute fracture or spondylolisthesis. Vertebral body heights are maintained. Multilevel mild disc degeneration. Mild facet degeneration in the lower lumbar spine. No suspicious bony lesion. SI joints are symmetric. No abnormal soft tissue calcification. XR/XR lumbar spine 2-3V IMPRESSION: Mild lumbar spondylosis. Electronically signed by: Guille Srivastava MD 05/02/2025 03:19 PM EST RP Dictated By: Guille Srivastava MD Signed By: <Electronically signed by Guille Srivastava MD in OV> 05/02/25 1519 DD/ 1438 TD/TT: 05/01/25 1447 Resource Room Special Education Teacher: DAGO us Ariadna Foley MD IMG XR PROCEDURES Fin al Result * (ABNORMAL) Lipid Panel, Standard (11/26/2022 12:47 PM EDT) Cholesterol, Total 240(H) <200 mg/dL [email or web address] [place] [facility] HDL Cholesterol 80 > OR = 50 mg/dL [email or web address] [place] [facility] Triglycerides 183(H) <150 mg/dL [email or web address] [place] [facility] LDL Cholesterol 128(H) mg/dL (calc) [email or web address] [place] [facility] Comment: Reference range: <100 Desirable range <100 mg/dL for primary prevention; <70 mg/dL for patients with CHD or diabetic patients with > or = 2 CHD risk factors. LDL-C is now calculated using the Luz Marina calculation, which is a validated novel method providing better accuracy than the Friedewald equation in the estimation of LDL-C. Juan SS et al. AYAKA. 2013;310(19): 3391-9492 (http://education.RealtimeBoard/faq/YHM191) Chol/HDLC Ratio 3.0 <5.0 (calc) [email or web address] [place] [facility] Non-HDL Cholesterol 160(H) <130 mg/dL (calc) [email or web address] [place] [facility] Comment: For patients with diabetes plus 1 major ASCVD risk factor, treating to a non-HDL-C goal of <100 mg/dL (LDL-C of <70 mg/dL) is considered a therapeutic option. Blood Venous blood specimen / Unknown 11/26/2022 12:47 PM EDT 11/26/2022 12:47 PM EDT Narrative [facility] - 11/27/2022 7:00 AM EDT FASTING:NO FASTING: NO us Betsey Stevenson DIRECTOR OF MIDWIFERY/STAFF MIDWIFE LAB BLOOD ORDERABLES Final Result [facility] [address], [place] [address] [email or web address] [place] [facility] [address] [place] [address] * HEPATITIS C AB W/REFL TO HCV RNA, QN, PCR (11/08/2020 10:22 AM EDT) HEPATITIS C ANTIBODY NON-REACT GUALBERTO NON-REACT GUALBERTO [facility] INDEX 0.01 <1.00 [facility] Comment: HCV antibody was non-reactive. There is no laboratory evidence of HCV infection. In most cases, no further action is required. However, if recent HCV exposure is suspected, a test for HCV RNA (test code 89426) is suggested. For additional information please refer to http://[employer].Eat Club/faq/CFQ17i5 (This link is being provided for informational/ educational purposes only.) 11/08/2020 10:2 2 AM EDT Linda Myers MD HISTORICAL/NON ORDERABLE LABS Final Result [facility] [address] * HIV 1/2 ANTIGEN/ANTIBODY,FOURTH GENERATION W/RFL (11/08/2020 10:22 AM EDT) HIV-1/2 ANTIGEN AND ANTIBODIES, 4TH GENERATION W/ REFLEX NON-REACT GUALBERTO NON-REACT GUALBERTO [facility] Comment: HIV-1 antigen and HIV-1/HIV-2 [...] purpose. For additional information please refer to http://[employer].Eat Club/faq/UFG059 (This link is being provided for informational/ educational purposes only.) The performance of this assay has not been clinically validated in patients less than 2 years old. 11/08/2020 10:2 2 AM EDT us Linda Myers MD LAB BLOOD ORDERABLES Final Re sult Performing Organization Address City/[facility]/ZIP Co de Phone Number [facility] [address] [place] [address], * THINPREP TIS PAP (10/11/2020 4:36 PM EDT) Clinical Information: [facility] COMMENT SEE COMMENT [facility] [...] along with historic and current clinical information. Comment: This Pap test has been evaluated with computer assisted technology. [facility] Operator Receptionist : SEE COMMENT [facility] Comment: RMM, CT(ASCP) CT screening location: [place] [address] Interpretation/R esult: Negative for intraepithelial lesion or malignancy. [facility] LMP: NONE [facility]IV[facility] PATHOLOGIST: SEE COMMENT [facility] Comment: Sai Cronin M.D., Direct , Board Certified in Anatomic Pathology and Cytopathology (electronic signature) Consulting Pathologist [facility] [address] [place] [address] Prev. BX: NONE [facility] Prev. PAP: NONE [facility] SOURCE: None given [facility] Statement Of Adequacy: SEE COMMENT [facility] Comment: Satisfactory for evaluation. Endocervical/transformation zone component present. 10/11/2020 4:36 PM EDT us Linda Myers MD LAB PATHOLOGY ORDERABLES Beata l Result Performing Organization Address [facility]/ZIP Co de Phone Number [facility] [address] [place] [address], * HPV mRNA E6/E7 (10/11/2020 4:36 PM EDT) HPV nRNA E6/E7 Not Detected Not Detected [facility] Comment: Methodology: Active Directory Specialist-Mediated Amplification This assay detects E6/E7 viral messenger RNA (mRNA) from 14 high-risk HPV types (16,18,31,33,35,39,45,51,52,56,58,59,66,68). The analytical performance characteristics of this assay have been determined by [facility]. The modifications have not been cleared or approved by the FDA. This assay has been validated pursuant to the CLIA regulations and is used for clinical purposes. For additional information, please refer to http://education.Eat Club/faq/RJK872o1 (This link if provided for information/ educational purposes only.) 10/11/2020 4:36 PM EDT us Linda Myers MD LAB BLOOD ORDERABLES Final Re sult [facility] [address] from Last 3 Months or Most Recently Relevant to Health Maintenance Insurance [facility] STANDARD Care Teams Project Coordinator Relationship Specialty Start Date End Date Ariadna Jewell MD [address] [place] [phone] PCP - General Internal Medicine 12/11/24 Jailene Busby [employer] ManagerCup Machine Operator 11/15/24
[2025-05-14 11:12] LABS: MANUAL DIFF FLAG NO
[2025-05-14 11:27] LABS: Hematocrit 37.2 % (37.0-47.0); Hemoglobin 12.3 g/dl (12.0-16.0); Imm Gran Abs Auto 0.02 X10*3/uL (0.00-0.03); Imm Gran Pct Auto 0.3 % (0.0-0.4); Lymphocytes Absolute Auto 2.4 X10*3/uL (1.2-4.9); Mean Corpuscular HGB Conc 33.1 g/dl (31.0-35.0); Mean Corpuscular Hemoglobin 28.2 pg (27.0-33.0); Mean Corpuscular Volume 85.3 fL (80.0-98.0); NRBC Abs Auto 0.000 X10*3/uL (0.0-0.012); NRBC Pct Auto 0.0 /100WBC (0.0-0.2); Platelet Count 328 X10*3/uL (160-400); Red Blood Count 4.36 X10*6/uL (4.20-5.50); White Blood Count 6.6 X10*3/uL (4.8-10.8)
[2025-05-14 14:30] LABS: Alanine Aminotransferase 28 U/L (0-31); Albumin Level 4.5 g/dL (3.5-5.0); Alkaline Phosphatase 81 U/L (39-117); Anion Gap 13 (12-20); Aspartate Amino Transferase 31 U/L (5-31); Blood Urea Nitrogen 8 mg/dL (9-16); Calcium 9.4 mg/dL (8.4-10.2); Carbon Dioxide 28 mmol/L (22-29); Chloride 99 mmol/L (96-108); Cholesterol 400 mg/dL (<200); Estimated Glomerular Filt Rate > 60; HDL Cholesterol 48 mg/dL (>40); Potassium 4.3 mmol/L (3.3-5.1); Sodium 136 mmol/L (135-145); Total Protein 7.4 g/dL (6.5-8.0); Triglycerides 1056 mg/dL (<150)
[2025-05-14 15:31] LABS: Free T4 (Free Thyroxine) 0.59 ng/dL (0.71-1.85)
[2025-05-15 08:07] LABS: HIV Num 1 0.08 S/CO (0.00-0.99); ~HepC Num1 0.11 S/CO (0.00-0.79); ~Hepatitis C Antibody Nonreactive (Nonreactive)
== END 2025-05-14 09:15 | disposition home or self-care (01) ==
LOC: HO.HHCL 09:14
PROVIDERS: PCP Internal Medicine; Visit Provider Internal Medicine
DX: F33.2 Major depressive disorder, recurrent severe without psychotic features (principal); E03.8 Other specified hypothyroidism; F11.20 Opioid dependence, uncomplicated
CPT/HCPCS: 36415; 80053; 80061; 82306; 83036; 84439; 84443; 85025; 86803; 87389